=== PATIENT | male | born 1960 | race African-American/Black ===

== ENCOUNTER 2021-10-06 11:13 | Inpatient (IN) | payer OTHER ==
[~2021-10-06 11:13] MED LIST: Acetaminophen 325 MG TAB PO SCH
[2021-10-06] MEDS ORDERED: Gabapentin 300 MG CAP ONE (11:26)
[2021-10-06] MEDS ORDERED: Lidocaine 1% MPF 2 ML VIAL ONE (11:28)
[2021-10-06] MEDS ORDERED: Ropivacaine 0.5% HCl/PF (150 MG/30 ML VIAL) ONE (11:49)
[2021-10-06] MEDS ORDERED: Midazolam HCl 2 mg/2 ml Vial ONE (11:50)
[2021-10-06] MEDS ORDERED: Fentanyl 100 MCG/2 ML VIAL ONE ×3 (11:50→16:39)
[2021-10-06] MEDS ORDERED: Ketorolac Tromethamine 30 MG/ML VIAL ONE ×3 (12:46→14:15)
[2021-10-06] MEDS ORDERED: traMADol HCl 50 MG TAB PO PRN (13:11)
[2021-10-06] MEDS ORDERED: Zolpidem Tartrate 5 MG TAB PO PRN (13:11)
[2021-10-06] MEDS ORDERED: Ondansetron PF 4 MG/2 ML Vial IVP PRN (13:11)
[2021-10-06] MEDS ORDERED: diphenhydrAMINE 25 MG CAP PO PRN (13:11)
[2021-10-06] MEDS ORDERED: Promethazine HCl 25 MG/ML VIAL IM PRN (13:11)
[2021-10-06] MEDS ORDERED: Acetaminophen 325 MG TAB PO PRN (13:11)
[2021-10-06] MEDS ORDERED: ceFAZolin 2 GM/Dextrose 50 ML IVPB ONE (14:10)
[2021-10-06] MEDS ORDERED: Tranexamic Acid 1,000 MG/10 ML VIAL ONE (14:10)
[2021-10-06] MEDS ORDERED: Neomycin-Polymyxin 1 ML AMP ONE ×2 (14:11→14:16)
[2021-10-06] MEDS ORDERED: HYDROmorphone 0.5 MG/0.5 ML SYRINGE ONE (14:11)
[2021-10-06] MEDS ORDERED: Ondansetron PF 4 MG/2 ML Vial ONE (14:13)
[2021-10-06] MEDS ORDERED: PROPOFOL 20 ML ONE (14:13)
[2021-10-06] MEDS ORDERED: Lidocaine 2% PF 5 ML VIAL ONE (14:13)
[2021-10-06] MEDS ORDERED: Rocuronium Bromide 10 MG/ML (10ML VIAL) ONE (14:13)
[2021-10-06] MEDS ORDERED: Dexamethasone 4 mg/ml Vial ONE (14:13)
[2021-10-06] MEDS ORDERED: Morphine 10 MG/ML VIAL ONE (14:15)
[2021-10-06] MEDS ORDERED: EPINEPHrine 1 MG/ML AMP ONE (14:15)
[2021-10-06] MEDS ORDERED: Ropivacaine 0.2% HCl/PF 40 ML ONE (14:16)
[2021-10-06] MEDS ORDERED: Glycopyrrolate 0.2 MG/ML 5 ML SYRINGE ONE (15:45)
[2021-10-06] MEDS ORDERED: ceFAZolin 2 GM/Dextrose 50 ML 2 GM in Premix Bag 1 BAG IVPB SCH (18:45)
[2021-10-06] MEDS: Senokot S 8.6-50 MG TAB PO SCH (21:14)
[2021-10-06] MEDS: Ketorolac Tromethamine 30 MG/ML VIAL IVP SCH ×2 (21:14→23:24)
[2021-10-06] MEDS: Aspirin 81 mg Enteric Coated Tablet PO SCH (21:14)
[2021-10-06] MEDS: Ferrous Gluconate 324 MG TAB PO SCH (21:14)
[2021-10-06] MEDS: ceFAZolin 2 GM/Dextrose 50 ML 2 GM in Premix Bag 1 BAG IVPB SCH (21:16)
[2021-10-06] MEDS: HYDROcodone/Acetaminophen 10/325 mg Tablet PO PRN (23:51)
[2021-10-07 03:34] LABS: Mean Corpuscular HGB CONC 34.4 g/dL (32.0-36.0); Mean Corpuscular Hemoglobin 29.6 pg (27.0-33.0); Mean Corpuscular Volume 86.2 fl (81.2-95.1); Mean Platelet Volume 8.4 fl (7.4-10.4); Platelet Count 183 10x3/uL (150-450); RBC Distribution Width 13.6 % (11.5-14.5); Red Blood Cell (RBC) Count 4.05 10x6/uL (4.32-5.72); White Blood Cell (WBC) Count 9.3 10x3/uL (3.5-10.5)
[2021-10-07] MEDS: ceFAZolin 2 GM/Dextrose 50 ML 2 GM in Premix Bag 1 BAG IVPB SCH (05:49)
[2021-10-07] MEDS: Ketorolac Tromethamine 30 MG/ML VIAL IVP SCH ×2 (05:52→14:36)
[2021-10-07] MEDS ORDERED: Multivitamin W/ Minerals 1 TAB PO SCH (09:00)
[2021-10-07] MEDS: Senokot S 8.6-50 MG TAB PO SCH (09:33)
[2021-10-07] MEDS: Ferrous Gluconate 324 MG TAB PO SCH (09:33)
[2021-10-07] MEDS: Aspirin 81 mg Enteric Coated Tablet PO SCH (09:33)
[2021-10-07] MEDS: HYDROcodone/Acetaminophen 10/325 mg Tablet PO PRN (09:41)
[2021-10-07 10:59] VITALS: BP 124/75; TEMP 96.3
[2021-10-07 14:48] VITALS: BMI 32.2
[2021-10-09] MEDS ORDERED: CeleCOXIB 100 MG CAP PO SCH (09:00)
== END 2021-10-07 16:00 | disposition home or self-care (01) | DRG 470 ==
LOC: CSHSDC 11:13 → CSHTELE 18:36
PROVIDERS: ADMIT Orthopaedic Surgery; ATTEND Orthopaedic Surgery
PROC: 0SR904Z Replacement of Right Hip Joint with Ceramic on Polyethylene Synthetic Substitute, Open Approach (ICD-10-PCS; principal; 2020-10-06)
DX: M16.11 Unilateral primary osteoarthritis, right hip (principal); Z98.890 Other specified postprocedural states
CPT/HCPCS: 36415; 72170; 85027; C1713; C1776; C1889; J0171; J0690; J1100; J1170; J1885; J2001; J2250; J2270; J2405; J2704; J2795; J3010; J3370